=== PATIENT | male | born 1950 | race Caucasian/White ===

== ENCOUNTER 2017-12-23 10:57 | Inpatient (IN) ==
[2017-12-23] MEDS ORDERED: ASPIRIN 325 MG TABLET PO STA (11:30)
[2017-12-23 11:57] LABS: Basophils # 0.4 10*3/uL (0.0-0.2); Basophils % 2.7 % (0.0-0.8); Eosinophils # 0.1 10*3/uL (0.0-0.87); Eosinophils % 0.5 % (0.00-10.9); Hematocrit 32.9 VOL% (42.0-52.0); Hemoglobin 9.8 GM/DL (14.0-18.0); Immature Granulocytes % 8.4 %; Immature Granulocytes Absolute 1.29 #; Lymphocytes # 1.2 10*3/uL (1.4-4.0); Lymphocytes % 7.6 % (21.2-54.2); Mean Corpuscular HGB Conc 29.8 GM/DL (32-36); Mean Corpuscular Hemoglobin 24 PG (27-34); Mean Corpuscular Volume 81.8 FL (87-102); Mean Platelet Volume 11.5 FL (9.6-12.0); Monocytes # 0.5 10*3/uL (0.11-0.8); Monocytes % 3.2 % (1.7-12.7); NRBC # 0.03 10*3/uL; Neutrophils % 77.6 % (38.7-73.9); Platelet Count 514 T/CUMM (130-400); Red Blood Count 4.02 MC/CUMM (3.8-5.5); White Blood Count 15.4 T/CUMM (4-12)
[2017-12-23] MEDS ORDERED: SODIUM CHLORIDE 0.9% 2,300 ML IV ONE (12:27)
[2017-12-23 12:28] LABS: Albumin 3.7 G/DL (3.4-5.0); Bilirubin,Total 0.5 MG/DL (0.2-1.0); Calcium 9.2 MG/DL (8.5-10.1); Osmolality,Calculated 284.8 MOS/KG (273-304); Potassium 4.3 MMOL/L (3.5-5.1); Total Protein 7.6 G/DL (6.4-8.3)
[2017-12-23 12:31] LABS: Band Neutrophils 6 % (0-10); Eosinophils 4 % (0-10); Hypochromasia 1+; Lymphocytes 9 % (20-55); Microcytosis 1+; Myelocytes 1 %; Segmented Neutrophils 79 % (50-85); Total Cells Counted 100
[2017-12-23 12:32] LABS: Anisocytosis 1+; Ovalocytes Few; Polychromasia Slight
[2017-12-23 12:33] LABS: Platelet Estimate Increased
[2017-12-23 12:43] LABS: Partial Thromboplastin Time 33.8 SECS (0-40)
[2017-12-23] MEDS ORDERED: PROMETHAZINE 25 MG/1 ML VIAL IM PRN (13:39)
[2017-12-23] MEDS ORDERED: ACETAMINOPHEN 325 MG TABLET PO PRN (13:39)
[2017-12-23] MEDS ORDERED: ONDANSETRON 4 MG/2 ML VIAL IV PRN (13:39)
[2017-12-23] MEDS ORDERED: ALBUTEROL 2.5 MG/3 ML NEB RESP TX PRN (13:46)
[2017-12-23] MEDS ORDERED: cefTRIAXone 1,000 MG in SYRINGE 1 EACH IV STA (13:55)
[2017-12-23 14:40] LABS: Apearance,Urine CLOUDY (Clear); Bacteria,Urine Moderate /HPF (Few); Bilirubin,Urine Negative (Negative); Blood, Urine Large mg/dL (Negative); Glucose,Urine (UA) Negative (Negative); Ketones,Urine Negative (Negative); Mucus,Urine Many /LPF (Occasional); Nitrite,Urine Positive (Negative); Protein,Urine 100 MG/DL; RBC,Urine 215 /HPF (0-4); Urine Color Amber (Yellow); Urine Specific Gravity 1.013 (1.001-1.035); Urine Urobilinogen < 2.0 EU/DL (0.2-1.0); WBC,Urine 649 /HPF (0-6)
[2017-12-23] MEDS ORDERED: clonazePAM 0.5 MG TABLET PO PRN (15:46)
[2017-12-23] MEDS: SODIUM CHLORIDE 0.9% 1,000 ML IV SCH (16:39)
[2017-12-23] MEDS: LEVOFLOXACIN INJ 500 MG in PREMIX 1 EACH IV SCH (16:46)
[2017-12-23] MEDS: GABAPENTIN 300 MG CAPSULE PO SCH ×2 (16:46→20:58)
[2017-12-23 17:44] LABS: Basophils # 0.2 10*3/uL (0.0-0.2); Basophils % 1.6 % (0.0-0.8); Eosinophils % 0.3 % (0.00-10.9); Hematocrit 26.5 VOL% (42.0-52.0); Hemoglobin 7.9 GM/DL (14.0-18.0); Immature Granulocytes % 9.4 %; Immature Granulocytes Absolute 1.23 #; Lymphocytes # 0.9 10*3/uL (1.4-4.0); Lymphocytes % 6.9 % (21.2-54.2); Mean Corpuscular HGB Conc 29.8 GM/DL (32-36); Mean Corpuscular Hemoglobin 25 PG (27-34); Mean Corpuscular Volume 83.1 FL (87-102); Mean Platelet Volume 11.6 FL (9.6-12.0); Monocytes # 0.4 10*3/uL (0.11-0.8); Monocytes % 3.2 % (1.7-12.7); NRBC # 0.02 10*3/uL; Neutrophils # 10.2 10*3/uL (1.4-7.4); Neutrophils % 78.6 % (38.7-73.9); Platelet Count 396 T/CUMM (130-400); Red Blood Count 3.19 MC/CUMM (3.8-5.5); Red Cell Distribution Width 19.9 % (9.3-17.3)
[2017-12-23 18:16] LABS: % Iron Saturation 21.8 % (18-50); Ferritin 388.1 ng/ml (26-388)
[2017-12-23 18:24] LABS: Folate 4.4 NG/ML (5.4-24.0); Vitamin B12 631 PG/ML (211-911)
[2017-12-23 18:25] LABS: Vitamin B12 1061 PG/ML (211-911)
[2017-12-23 18:28] LABS: Eosinophils 1 % (0-10); Lymphocytes 11 % (20-55); Platelet Estimate Normal; Segmented Neutrophils 88 % (50-85); Total Cells Counted 100
[2017-12-23 18:54] LABS: Sedimentation Rate-Westergren 58 MM/HR (0-20)
[2017-12-24] MEDS: SODIUM CHLORIDE 0.9% 1,000 ML IV SCH ×4 (01:46→19:07)
[2017-12-24 05:32] LABS: Basophils # 0.2 10*3/uL (0.0-0.2); Basophils % 1.6 % (0.0-0.8); Eosinophils # 0.1 10*3/uL (0.0-0.87); Eosinophils % 0.7 % (0.00-10.9); Hemoglobin 7.6 GM/DL (14.0-18.0); Immature Granulocytes % 8.8 %; Immature Granulocytes Absolute 0.88 #; Lymphocytes # 0.8 10*3/uL (1.4-4.0); Lymphocytes % 8.1 % (21.2-54.2); Mean Corpuscular HGB Conc 29.2 GM/DL (32-36); Mean Corpuscular Hemoglobin 25 PG (27-34); Mean Corpuscular Volume 84.1 FL (87-102); Mean Platelet Volume 11.6 FL (9.6-12.0); Monocytes # 0.4 10*3/uL (0.11-0.8); Monocytes % 3.7 % (1.7-12.7); NRBC # 0.03 10*3/uL; Neutrophils # 7.7 10*3/uL (1.4-7.4); Neutrophils % 77.1 % (38.7-73.9); Platelet Count 355 T/CUMM (130-400); Red Blood Count 3.09 MC/CUMM (3.8-5.5); Red Cell Distribution Width 19.7 % (9.3-17.3)
[2017-12-24 05:56] LABS: Calcium 8.4 MG/DL (8.5-10.1); Osmolality,Calculated 283.5 MOS/KG (273-304)
[2017-12-24 05:59] LABS: Bilirubin,Total 0.5 MG/DL (0.2-1.0); Calcium 8.6 MG/DL (8.5-10.1); Osmolality,Calculated 284.5 MOS/KG (273-304); Potassium 4.2 MMOL/L (3.5-5.1); Total Protein 6.4 G/DL (6.4-8.3)
[2017-12-24 06:04] LABS: Band Neutrophils 7 % (0-10); Eosinophils 3 % (0-10); Hypochromasia 1+; Lymphocytes 8 % (20-55); Platelet Estimate Adequate; Segmented Neutrophils 80 % (50-85); Total Cells Counted 100
[2017-12-24 06:05] LABS: Microcytosis Slight
[2017-12-24 08:43] LABS: Hemoglobin A1 (Alkaline) 97.5 % (96.5-98.5); Hemoglobin A2 (Alkaline) 2.5 % (1.5-3.5)
[2017-12-24] MEDS ORDERED: NON-FORMULARY MEDICATION (Fluticasone/Umeclidin/Vilanter [Trelegy Ellipta 100-62.5-25] 1 P INH SCH (09:00)
[2017-12-24] MEDS: GABAPENTIN 300 MG CAPSULE PO SCH ×3 (09:01→20:40)
[2017-12-24] MEDS: SERTRALINE 100 MG TABLET PO SCH (09:01)
[2017-12-24] MEDS: TAMSULOSIN 0.4 MG CAPSULE PO SCH (09:01)
[2017-12-24] MEDS: PANTOPRAZOLE 40 MG TABLET PO SCH (09:01)
[2017-12-24] MEDS: ALLOPURINOL 100 MG TABLET PO SCH (09:02)
[2017-12-24] MEDS: CHOLECALCIFEROL 5,000 UNIT TABLET PO SCH (11:39)
[2017-12-24] MEDS: ERGOCALCIFEROL 50,000 UNIT CAPSULE PO SCH (11:39)
[2017-12-24] MEDS ORDERED: ALUM/MAG/SIMETH/LIDO VISC 1:1 30 ML BOTTLE PO ONE (13:51)
[2017-12-24] MEDS: LEVOFLOXACIN INJ 500 MG in PREMIX 1 EACH IV SCH (15:22)
[2017-12-24] MEDS: FERROUS SULFATE 325 MG TABLET PO SCH ×2 (15:22→20:40)
[2017-12-24] MEDS ORDERED: SODIUM CHLORIDE 0.9% 1,000 ML IV PRN ×2 (15:58→17:04)
[2017-12-24] MEDS: methylPREDNISolone SOD SUC 40 MG/1 ML VIAL IV SCH (17:19)
[2017-12-24] MEDS: ALBUTEROL/IPRATROPIUM 3 ML NEB RESP TX SCH (19:09)
[2017-12-24] MEDS: FOLIC ACID 1 MG TABLET PO SCH (20:40)
[2017-12-25] MEDS: ALBUTEROL/IPRATROPIUM 3 ML NEB RESP TX SCH ×4 (00:40→22:09)
[2017-12-25] MEDS: methylPREDNISolone SOD SUC 40 MG/1 ML VIAL IV SCH ×3 (03:18→16:12)
[2017-12-25 05:43] LABS: Basophils # 0.1 10*3/uL (0.0-0.2); Basophils % 1.4 % (0.0-0.8); Eosinophils % 0.2 % (0.00-10.9); Hematocrit 27.8 VOL% (42.0-52.0); Hemoglobin 8.2 GM/DL (14.0-18.0); Immature Granulocytes % 8.9 %; Immature Granulocytes Absolute 0.91 #; Lymphocytes # 0.6 10*3/uL (1.4-4.0); Lymphocytes % 5.9 % (21.2-54.2); Mean Corpuscular HGB Conc 29.5 GM/DL (32-36); Mean Corpuscular Hemoglobin 25 PG (27-34); Mean Platelet Volume 11.5 FL (9.6-12.0); Monocytes # 0.2 10*3/uL (0.11-0.8); Monocytes % 2.2 % (1.7-12.7); NRBC # 0.02 10*3/uL; Neutrophils # 8.3 10*3/uL (1.4-7.4); Neutrophils % 81.4 % (38.7-73.9); Platelet Count 317 T/CUMM (130-400); Red Blood Count 3.27 MC/CUMM (3.8-5.5); Red Cell Distribution Width 18.7 % (9.3-17.3); White Blood Count 10.2 T/CUMM (4-12)
[2017-12-25 05:59] LABS: Calcium 8.4 MG/DL (8.5-10.1); Calcium 8.5 MG/DL (8.5-10.1); Osmolality,Calculated 284.3 MOS/KG (273-304); Osmolality,Calculated 286.1 MOS/KG (273-304); Potassium 3.6 MMOL/L (3.5-5.1); Potassium 3.7 MMOL/L (3.5-5.1)
[2017-12-25 06:15] LABS: Band Neutrophils 4 % (0-10); Eosinophils 1 % (0-10); Hypochromasia 1+; Lymphocytes 11 % (20-55); Metamyelocytes 1 %; Microcytosis 1+; Myelocytes 3 %; Ovalocytes Slight; Polychromasia Slight; Segmented Neutrophils 76 % (50-85); Total Cells Counted 100
[2017-12-25 06:16] LABS: Anisocytosis 1+; Platelet Estimate Normal
[2017-12-25] MEDS: SODIUM CHLORIDE 0.9% 1,000 ML IV SCH ×2 (07:15→16:15)
[2017-12-25] MEDS ORDERED: MAGNESIUM SULF RIDER 2 GM in PREMIX 1 EACH IV ONE (07:34)
[2017-12-25 08:50] LABS: Apearance,Urine CLOUDY (Clear); Bilirubin,Urine Negative (Negative); Blood, Urine Moderate mg/dL (Negative); Glucose,Urine (UA) Negative (Negative); Ketones,Urine Negative (Negative); Mucus,Urine Occasional /LPF (Occasional); Nitrite,Urine Negative (Negative); Protein,Urine Negative; RBC,Urine 15 /HPF (0-4); Uric Acid Crystals,Urine Occasional /HPF (<1); Urine Color Yellow (Yellow); Urine Specific Gravity 1.011 (1.001-1.035); Urine Urobilinogen < 2.0 EU/DL (0.2-1.0); WBC,Urine 37 /HPF (0-6)
[2017-12-25] MEDS: FOLIC ACID 1 MG TABLET PO SCH ×2 (09:00→22:35)
[2017-12-25] MEDS: FERROUS SULFATE 325 MG TABLET PO SCH ×3 (09:00→22:35)
[2017-12-25] MEDS: GABAPENTIN 300 MG CAPSULE PO SCH ×3 (09:00→22:35)
[2017-12-25] MEDS: SERTRALINE 100 MG TABLET PO SCH (11:26)
[2017-12-25] MEDS: PANTOPRAZOLE 40 MG TABLET PO SCH (11:26)
[2017-12-25] MEDS: CHOLECALCIFEROL 5,000 UNIT TABLET PO SCH (11:26)
[2017-12-25] MEDS: ALLOPURINOL 100 MG TABLET PO SCH (11:26)
[2017-12-25] MEDS: TAMSULOSIN 0.4 MG CAPSULE PO SCH (11:27)
[2017-12-25] MEDS ORDERED: BISACODYL 5 MG TABLET PO ONE (12:00)
[2017-12-25 12:35] LABS: Carcinoembryonic Antigen < 0.5 NG/ML (0.0-5.0)
[2017-12-25] MEDS: LEVOFLOXACIN INJ 500 MG in PREMIX 1 EACH IV SCH (16:13)
[2017-12-25] MEDS ORDERED: PANTOPRAZOLE 40 MG TABLET PO ONE (17:45)
[2017-12-25] MEDS ORDERED: POLYETHYLENE GLYCOL POWDER 255 GM BOTTLE PO ONE (18:00)
[2017-12-26] MEDS: ALBUTEROL/IPRATROPIUM 3 ML NEB RESP TX SCH ×4 (00:01→20:09)
[2017-12-26] MEDS: SODIUM CHLORIDE 0.9% 1,000 ML IV SCH ×2 (00:53→13:14)
[2017-12-26] MEDS: methylPREDNISolone SOD SUC 40 MG/1 ML VIAL IV SCH ×3 (01:36→17:20)
[2017-12-26 06:23] LABS: Basophils # 0.1 10*3/uL (0.0-0.2); Basophils % 0.9 % (0.0-0.8); Eosinophils % 0.2 % (0.00-10.9); Hematocrit 28.9 VOL% (42.0-52.0); Hemoglobin 8.8 GM/DL (14.0-18.0); Immature Granulocytes % 8.8 %; Immature Granulocytes Absolute 1.02 #; Lymphocytes # 0.4 10*3/uL (1.4-4.0); Mean Corpuscular HGB Conc 30.4 GM/DL (32-36); Mean Corpuscular Hemoglobin 25 PG (27-34); Mean Corpuscular Volume 81.9 FL (87-102); Mean Platelet Volume 10.8 FL (9.6-12.0); Monocytes # 0.3 10*3/uL (0.11-0.8); Monocytes % 2.3 % (1.7-12.7); NRBC # 0.02 10*3/uL; Neutrophils # 9.9 10*3/uL (1.4-7.4); Neutrophils % 84.8 % (38.7-73.9); Platelet Count 324 T/CUMM (130-400); Red Blood Count 3.53 MC/CUMM (3.8-5.5); Red Cell Distribution Width 18.8 % (9.3-17.3); White Blood Count 11.6 T/CUMM (4-12)
[2017-12-26 06:45] LABS: Bilirubin,Total 0.5 MG/DL (0.2-1.0); Calcium 8.9 MG/DL (8.5-10.1); Potassium 3.3 MMOL/L (3.5-5.1); Total Protein 6.3 G/DL (6.4-8.3)
[2017-12-26 06:46] LABS: Band Neutrophils 7 % (0-10); Lymphocytes 5 % (20-55); Nucleated Red Blood Cells 1 (0-5); Platelet Estimate Normal; Segmented Neutrophils 84 % (50-85); Total Cells Counted 100
[2017-12-26] MEDS ORDERED: LIDOCAINE 2% 5 ML VIAL ONE (09:00)
[2017-12-26] MEDS ORDERED: PROPOFOL 200 MG/20 ML VIAL IV ONE (09:00)
[2017-12-26] MEDS ORDERED: POTASSIUM CHLORIDE 20 MEQ/15 ML UDCUP PO ONE (09:26)
[2017-12-26] MEDS ORDERED: MAGNESIUM SULF RIDER 2 GM in PREMIX 1 EACH IV ONE (09:27)
[2017-12-26] MEDS: FERROUS SULFATE 325 MG TABLET PO SCH ×3 (12:13→21:39)
[2017-12-26] MEDS: GABAPENTIN 300 MG CAPSULE PO SCH ×3 (12:13→21:39)
[2017-12-26] MEDS: PANTOPRAZOLE 40 MG TABLET PO SCH (13:02)
[2017-12-26] MEDS: ALLOPURINOL 100 MG TABLET PO SCH (13:03)
[2017-12-26] MEDS: TAMSULOSIN 0.4 MG CAPSULE PO SCH (13:03)
[2017-12-26] MEDS: CHOLECALCIFEROL 5,000 UNIT TABLET PO SCH (13:03)
[2017-12-26] MEDS: FOLIC ACID 1 MG TABLET PO SCH ×2 (13:04→21:39)
[2017-12-26] MEDS: SERTRALINE 100 MG TABLET PO SCH (13:04)
[2017-12-26] MEDS: LEVOFLOXACIN INJ 500 MG in PREMIX 1 EACH IV SCH (15:20)
[2017-12-26] MEDS ORDERED: PANTOPRAZOLE 40 MG TABLET PO ONE (17:30)
[2017-12-26] MEDS ORDERED: ALUM/MAG/SIMETH/LIDO VISC 1:1 30 ML BOTTLE PO ONE (19:33)
[2017-12-26] MEDS ORDERED: ALUMINUM/MAGNES/SIMETH MAX STR 30 ML UDCUP PO ONE (23:50)
[2017-12-27] MEDS: methylPREDNISolone SOD SUC 40 MG/1 ML VIAL IV SCH ×3 (00:23→17:25)
[2017-12-27] MEDS: SODIUM CHLORIDE 0.9% 1,000 ML IV SCH ×3 (00:24→08:11)
[2017-12-27] MEDS: ALBUTEROL/IPRATROPIUM 3 ML NEB RESP TX SCH ×4 (00:43→19:13)
[2017-12-27] MEDS: SIMETHICONE CHEW 125 MG TABLET PO SCH ×4 (02:40→14:30)
[2017-12-27 07:50] LABS: Albumin 2.8 G/DL (3.4-5.0); Bilirubin,Total 0.6 MG/DL (0.2-1.0); Calcium 8.5 MG/DL (8.5-10.1); Osmolality,Calculated 288.8 MOS/KG (273-304); Potassium 3.7 MMOL/L (3.5-5.1); Total Protein 5.8 G/DL (6.4-8.3)
[2017-12-27 07:51] LABS: Basophils # 0.1 10*3/uL (0.0-0.2); Basophils % 0.9 % (0.0-0.8); Eosinophils % 0.1 % (0.00-10.9); Hematocrit 28.6 VOL% (42.0-52.0); Hemoglobin 8.5 GM/DL (14.0-18.0); Immature Granulocytes % 8.9 %; Immature Granulocytes Absolute 1.08 #; Lymphocytes # 0.4 10*3/uL (1.4-4.0); Lymphocytes % 3.5 % (21.2-54.2); Mean Corpuscular HGB Conc 29.7 GM/DL (32-36); Mean Corpuscular Hemoglobin 25 PG (27-34); Mean Corpuscular Volume 84.1 FL (87-102); Mean Platelet Volume 11.2 FL (9.6-12.0); Monocytes # 0.3 10*3/uL (0.11-0.8); Monocytes % 2.4 % (1.7-12.7); NRBC # 0.02 10*3/uL; Neutrophils # 10.2 10*3/uL (1.4-7.4); Neutrophils % 84.2 % (38.7-73.9); Platelet Count 323 T/CUMM (130-400); Red Cell Distribution Width 18.9 % (9.3-17.3); White Blood Count 12.1 T/CUMM (4-12)
[2017-12-27] MEDS: PANTOPRAZOLE 40 MG TABLET PO SCH (08:24)
[2017-12-27] MEDS: GABAPENTIN 300 MG CAPSULE PO SCH ×3 (08:24→20:06)
[2017-12-27] MEDS: CHOLECALCIFEROL 5,000 UNIT TABLET PO SCH (08:24)
[2017-12-27] MEDS: SERTRALINE 100 MG TABLET PO SCH (08:25)
[2017-12-27] MEDS: ALLOPURINOL 100 MG TABLET PO SCH (08:25)
[2017-12-27] MEDS: FOLIC ACID 1 MG TABLET PO SCH ×2 (08:31→20:07)
[2017-12-27] MEDS: TAMSULOSIN 0.4 MG CAPSULE PO SCH (08:31)
[2017-12-27] MEDS: FERROUS SULFATE 325 MG TABLET PO SCH ×3 (08:31→20:07)
[2017-12-27 08:54] LABS: HIV Antigen/Antibody Result Nonreactive (Nonreactive)
[2017-12-27] MEDS: LISINOPRIL/HCTZ 20-12.5 MG TABLET PO SCH (09:04)
[2017-12-27 09:27] LABS: Anisocytosis 1+; Band Neutrophils 7 % (0-10)
[2017-12-27 09:28] LABS: Hypochromasia 1+; Microcytosis 1+
[2017-12-27 09:29] LABS: Ovalocytes Few
[2017-12-27 09:30] LABS: Lymphocytes 4 % (20-55); Metamyelocytes 1 %
[2017-12-27 09:33] LABS: Tear Drop Cells Slight
[2017-12-27 09:36] LABS: Platelet Estimate Normal
[2017-12-27 09:37] LABS: Segmented Neutrophils 86 % (50-85); Total Cells Counted 100
[2017-12-27 09:42] LABS: Basophilic Stippling Slight
[2017-12-27] MEDS: LEVOFLOXACIN INJ 500 MG in PREMIX 1 EACH IV SCH (15:44)
[2017-12-28] MEDS: ALBUTEROL/IPRATROPIUM 3 ML NEB RESP TX SCH ×4 (00:22→19:34)
[2017-12-28] MEDS: methylPREDNISolone SOD SUC 40 MG/1 ML VIAL IV SCH ×3 (01:50→16:29)
[2017-12-28 03:15] LABS: Basophils # 0.1 10*3/uL (0.0-0.2); Basophils % 0.6 % (0.0-0.8); Eosinophils % 0.1 % (0.00-10.9); Hematocrit 27.2 VOL% (42.0-52.0); Hemoglobin 8.2 GM/DL (14.0-18.0); Immature Granulocytes % 7.7 %; Immature Granulocytes Absolute 0.79 #; Lymphocytes # 0.3 10*3/uL (1.4-4.0); Mean Corpuscular HGB Conc 30.1 GM/DL (32-36); Mean Corpuscular Hemoglobin 25 PG (27-34); Mean Corpuscular Volume 84.2 FL (87-102); Mean Platelet Volume 11.3 FL (9.6-12.0); Monocytes # 0.3 10*3/uL (0.11-0.8); Monocytes % 2.9 % (1.7-12.7); NRBC # 0.04 10*3/uL; Neutrophils # 8.8 10*3/uL (1.4-7.4); Neutrophils % 85.7 % (38.7-73.9); Platelet Count 319 T/CUMM (130-400); Red Blood Count 3.23 MC/CUMM (3.8-5.5); Red Cell Distribution Width 18.9 % (9.3-17.3); White Blood Count 10.3 T/CUMM (4-12)
[2017-12-28 03:41] LABS: Calcium 8.6 MG/DL (8.5-10.1); Potassium 3.5 MMOL/L (3.5-5.1)
[2017-12-28 03:54] LABS: Lymphocytes 8 % (20-55); Nucleated Red Blood Cells 1 (0-5); Platelet Estimate Normal; Polychromasia Slight; Segmented Neutrophils 89 % (50-85); Total Cells Counted 100
[2017-12-28] MEDS: LISINOPRIL/HCTZ 20-12.5 MG TABLET PO SCH (08:56)
[2017-12-28] MEDS: CHOLECALCIFEROL 5,000 UNIT TABLET PO SCH (08:56)
[2017-12-28] MEDS: SERTRALINE 100 MG TABLET PO SCH (08:56)
[2017-12-28] MEDS: PANTOPRAZOLE 40 MG TABLET PO SCH (08:56)
[2017-12-28] MEDS: ALLOPURINOL 100 MG TABLET PO SCH (08:56)
[2017-12-28] MEDS: GABAPENTIN 300 MG CAPSULE PO SCH ×3 (08:57→20:55)
[2017-12-28] MEDS: TAMSULOSIN 0.4 MG CAPSULE PO SCH (08:57)
[2017-12-28] MEDS: FERROUS SULFATE 325 MG TABLET PO SCH ×3 (08:57→20:55)
[2017-12-28] MEDS: FOLIC ACID 1 MG TABLET PO SCH ×2 (08:57→20:55)
[2017-12-28] MEDS ORDERED: CARVEDILOL 3.125 MG TABLET PO SCH (10:00)
[2017-12-28] MEDS: LEVOFLOXACIN INJ 500 MG in PREMIX 1 EACH IV SCH (16:29)
[2017-12-28] MEDS: CARVEDILOL 6.25 MG TABLET PO SCH (20:55)
[2017-12-29] MEDS: methylPREDNISolone SOD SUC 40 MG/1 ML VIAL IV SCH ×3 (01:06→16:45)
[2017-12-29] MEDS: ALBUTEROL/IPRATROPIUM 3 ML NEB RESP TX SCH ×4 (01:28→19:10)
[2017-12-29] MEDS ORDERED: ALUMINUM/MAGNES/SIMETH MAX STR 30 ML UDCUP PO PRN (01:37)
[2017-12-29] MEDS ORDERED: ALUM/MAG/SIMETH/LIDO VISC 1:1 30 ML BOTTLE PO ONE (01:37)
[2017-12-29] MEDS: SIMETHICONE CHEW 125 MG TABLET PO PRN ×2 (03:39→13:35)
[2017-12-29 04:43] LABS: Basophils # 0.1 10*3/uL (0.0-0.2); Basophils % 0.6 % (0.0-0.8); Eosinophils % 0.1 % (0.00-10.9); Hematocrit 31.8 VOL% (42.0-52.0); Hemoglobin 9.7 GM/DL (14.0-18.0); Immature Granulocytes % 9.2 %; Immature Granulocytes Absolute 1.28 #; Lymphocytes # 0.4 10*3/uL (1.4-4.0); Lymphocytes % 2.7 % (21.2-54.2); Mean Corpuscular HGB Conc 30.5 GM/DL (32-36); Mean Corpuscular Hemoglobin 25 PG (27-34); Mean Corpuscular Volume 82.6 FL (87-102); Mean Platelet Volume 11.3 FL (9.6-12.0); Monocytes # 0.3 10*3/uL (0.11-0.8); Monocytes % 1.8 % (1.7-12.7); Neutrophils # 11.9 10*3/uL (1.4-7.4); Neutrophils % 85.6 % (38.7-73.9); Platelet Count 359 T/CUMM (130-400); Red Blood Count 3.85 MC/CUMM (3.8-5.5); Red Cell Distribution Width 19.2 % (9.3-17.3); White Blood Count 13.9 T/CUMM (4-12)
[2017-12-29 05:12] LABS: Calcium 8.4 MG/DL (8.5-10.1)
[2017-12-29 05:13] LABS: Osmolality,Calculated 283.1 MOS/KG (273-304)
[2017-12-29 05:43] LABS: Band Neutrophils 25 % (0-10); Lymphocytes 2 % (20-55); Metamyelocytes 2 %; Platelet Estimate Normal; Segmented Neutrophils 69 % (50-85); Total Cells Counted 100
[2017-12-29] MEDS: SERTRALINE 100 MG TABLET PO SCH (08:57)
[2017-12-29] MEDS: PANTOPRAZOLE 40 MG TABLET PO SCH (08:57)
[2017-12-29] MEDS: GABAPENTIN 300 MG CAPSULE PO SCH ×3 (08:57→20:22)
[2017-12-29] MEDS: CHOLECALCIFEROL 5,000 UNIT TABLET PO SCH (08:57)
[2017-12-29] MEDS: FERROUS SULFATE 325 MG TABLET PO SCH ×3 (08:57→20:23)
[2017-12-29] MEDS: TAMSULOSIN 0.4 MG CAPSULE PO SCH (08:57)
[2017-12-29] MEDS: ALLOPURINOL 100 MG TABLET PO SCH (08:57)
[2017-12-29] MEDS: CARVEDILOL 6.25 MG TABLET PO SCH ×2 (08:57→20:23)
[2017-12-29] MEDS: FOLIC ACID 1 MG TABLET PO SCH ×2 (08:57→20:23)
[2017-12-29] MEDS: LISINOPRIL/HCTZ 20-12.5 MG TABLET PO SCH (08:57)
[2017-12-29] MEDS: LEVOFLOXACIN INJ 500 MG in PREMIX 1 EACH IV SCH (15:44)
[2017-12-30] MEDS: ALBUTEROL/IPRATROPIUM 3 ML NEB RESP TX SCH ×4 (00:20→19:20)
[2017-12-30] MEDS: methylPREDNISolone SOD SUC 40 MG/1 ML VIAL IV SCH ×3 (01:45→17:03)
[2017-12-30 05:07] LABS: Basophils # 0.1 10*3/uL (0.0-0.2); Basophils % 0.6 % (0.0-0.8); Eosinophils % 0.1 % (0.00-10.9); Hematocrit 34.1 VOL% (42.0-52.0); Hemoglobin 10.3 GM/DL (14.0-18.0); Immature Granulocytes % 8.2 %; Immature Granulocytes Absolute 1.45 #; Lymphocytes # 0.5 10*3/uL (1.4-4.0); Mean Corpuscular HGB Conc 30.2 GM/DL (32-36); Mean Corpuscular Hemoglobin 25 PG (27-34); Mean Corpuscular Volume 82.6 FL (87-102); Mean Platelet Volume 11.8 FL (9.6-12.0); Monocytes # 0.4 10*3/uL (0.11-0.8); Monocytes % 2.4 % (1.7-12.7); NRBC # 0.06 10*3/uL; Neutrophils # 15.1 10*3/uL (1.4-7.4); Neutrophils % 85.7 % (38.7-73.9); Platelet Count 414 T/CUMM (130-400); Red Blood Count 4.13 MC/CUMM (3.8-5.5); Red Cell Distribution Width 19.3 % (9.3-17.3); White Blood Count 17.6 T/CUMM (4-12)
[2017-12-30 05:32] LABS: Bilirubin,Total 0.7 MG/DL (0.2-1.0); Calcium 8.5 MG/DL (8.5-10.1); Osmolality,Calculated 285.3 MOS/KG (273-304); Potassium 4.3 MMOL/L (3.5-5.1); Total Protein 5.9 G/DL (6.4-8.3)
[2017-12-30 05:34] LABS: Band Neutrophils 6 % (0-10); Hypochromasia 1+; Lymphocytes 2 % (20-55); Nucleated Red Blood Cells 1 (0-5); Ovalocytes Slight; Platelet Estimate Increased; Segmented Neutrophils 90 % (50-85); Total Cells Counted 100
[2017-12-30] MEDS ORDERED: HEPARIN 5,000 UNIT/1 ML VIAL ONE (07:31)
[2017-12-30] MEDS: SERTRALINE 100 MG TABLET PO SCH (09:49)
[2017-12-30] MEDS: GABAPENTIN 300 MG CAPSULE PO SCH ×3 (09:49→20:45)
[2017-12-30] MEDS: PANTOPRAZOLE 40 MG TABLET PO SCH (09:50)
[2017-12-30] MEDS: CARVEDILOL 6.25 MG TABLET PO SCH ×2 (09:50→20:46)
[2017-12-30] MEDS: TAMSULOSIN 0.4 MG CAPSULE PO SCH (09:50)
[2017-12-30] MEDS: CHOLECALCIFEROL 5,000 UNIT TABLET PO SCH (09:50)
[2017-12-30] MEDS: FOLIC ACID 1 MG TABLET PO SCH ×2 (09:50→20:46)
[2017-12-30] MEDS: LISINOPRIL/HCTZ 20-12.5 MG TABLET PO SCH (09:50)
[2017-12-30] MEDS: ALLOPURINOL 100 MG TABLET PO SCH (09:50)
[2017-12-30] MEDS: FERROUS SULFATE 325 MG TABLET PO SCH ×3 (09:51→20:49)
[2017-12-30] MEDS: LEVOFLOXACIN INJ 500 MG in PREMIX 1 EACH IV SCH (14:13)
[2017-12-31] MEDS: ALBUTEROL/IPRATROPIUM 3 ML NEB RESP TX SCH ×4 (00:31→20:18)
[2017-12-31] MEDS: methylPREDNISolone SOD SUC 40 MG/1 ML VIAL IV SCH ×3 (02:01→17:19)
[2017-12-31] MEDS: ALLOPURINOL 100 MG TABLET PO SCH (09:41)
[2017-12-31] MEDS: GABAPENTIN 300 MG CAPSULE PO SCH ×3 (09:41→20:51)
[2017-12-31] MEDS: FERROUS SULFATE 325 MG TABLET PO SCH ×3 (09:41→20:51)
[2017-12-31] MEDS: CHOLECALCIFEROL 5,000 UNIT TABLET PO SCH (09:41)
[2017-12-31] MEDS: CARVEDILOL 6.25 MG TABLET PO SCH ×2 (09:41→20:51)
[2017-12-31] MEDS: LISINOPRIL/HCTZ 20-12.5 MG TABLET PO SCH (09:41)
[2017-12-31] MEDS: FOLIC ACID 1 MG TABLET PO SCH ×2 (09:41→20:51)
[2017-12-31] MEDS: TAMSULOSIN 0.4 MG CAPSULE PO SCH (09:42)
[2017-12-31] MEDS: PANTOPRAZOLE 40 MG TABLET PO SCH (09:42)
[2017-12-31] MEDS: SERTRALINE 100 MG TABLET PO SCH (09:42)
[2017-12-31] MEDS: ERGOCALCIFEROL 50,000 UNIT CAPSULE PO SCH (12:09)
[2017-12-31] MEDS: LEVOFLOXACIN INJ 500 MG in PREMIX 1 EACH IV SCH (14:52)
[2018-01-01] MEDS: methylPREDNISolone SOD SUC 40 MG/1 ML VIAL IV SCH ×2 (00:25→10:05)
[2018-01-01] MEDS: ALBUTEROL/IPRATROPIUM 3 ML NEB RESP TX SCH ×4 (00:28→19:18)
[2018-01-01 05:10] LABS: Basophils # 0.1 10*3/uL (0.0-0.2); Basophils % 0.5 % (0.0-0.8); Eosinophils % 0.2 % (0.00-10.9); Hematocrit 34.2 VOL% (42.0-52.0); Hemoglobin 10.2 GM/DL (14.0-18.0); Immature Granulocytes % 10.1 %; Immature Granulocytes Absolute 1.76 #; Lymphocytes # 0.6 10*3/uL (1.4-4.0); Lymphocytes % 3.3 % (21.2-54.2); Mean Corpuscular HGB Conc 29.8 GM/DL (32-36); Mean Corpuscular Hemoglobin 25 PG (27-34); Mean Corpuscular Volume 84.2 FL (87-102); Mean Platelet Volume 11.3 FL (9.6-12.0); Monocytes # 0.4 10*3/uL (0.11-0.8); Monocytes % 2.2 % (1.7-12.7); NRBC # 0.04 10*3/uL; Neutrophils # 14.6 10*3/uL (1.4-7.4); Neutrophils % 83.7 % (38.7-73.9); Platelet Count 384 T/CUMM (130-400); Red Blood Count 4.06 MC/CUMM (3.8-5.5); Red Cell Distribution Width 19.4 % (9.3-17.3); White Blood Count 17.5 T/CUMM (4-12)
[2018-01-01 05:39] LABS: Calcium 8.4 MG/DL (8.5-10.1); Osmolality,Calculated 288.4 MOS/KG (273-304); Potassium 4.7 MMOL/L (3.5-5.1)
[2018-01-01 05:41] LABS: Calcium 8.6 MG/DL (8.5-10.1); Osmolality,Calculated 285.5 MOS/KG (273-304); Potassium 4.8 MMOL/L (3.5-5.1)
[2018-01-01 06:10] LABS: Band Neutrophils 3 % (0-10); Lymphocytes 5 % (20-55); Metamyelocytes 1 %; Platelet Estimate Normal; Segmented Neutrophils 86 % (50-85); Total Cells Counted 100
[2018-01-01 06:11] LABS: Basophilic Stippling Few; Polychromasia Few
[2018-01-01] MEDS ORDERED: LIDOCAINE 2% TOP JELLY 20 ML VIAL INTRAURETH ONE (08:23)
[2018-01-01] MEDS: PANTOPRAZOLE 40 MG TABLET PO SCH (10:04)
[2018-01-01] MEDS: TAMSULOSIN 0.4 MG CAPSULE PO SCH (10:05)
[2018-01-01] MEDS: FERROUS SULFATE 325 MG TABLET PO SCH ×3 (10:05→20:42)
[2018-01-01] MEDS: ALLOPURINOL 100 MG TABLET PO SCH (10:05)
[2018-01-01] MEDS: CHOLECALCIFEROL 5,000 UNIT TABLET PO SCH (10:05)
[2018-01-01] MEDS: FOLIC ACID 1 MG TABLET PO SCH ×2 (10:05→20:43)
[2018-01-01] MEDS: SERTRALINE 100 MG TABLET PO SCH (10:05)
[2018-01-01] MEDS: GABAPENTIN 300 MG CAPSULE PO SCH ×3 (10:05→20:42)
[2018-01-01] MEDS: CARVEDILOL 6.25 MG TABLET PO SCH ×2 (10:05→20:42)
[2018-01-01] MEDS: LISINOPRIL/HCTZ 20-12.5 MG TABLET PO SCH (10:05)
[2018-01-01] MEDS ORDERED: methylPREDNISolone SOD SUC 40 MG/1 ML VIAL IM SCH (13:30)
[2018-01-01] MEDS: LEVOFLOXACIN INJ 500 MG in PREMIX 1 EACH IV SCH (16:33)
[2018-01-01] MEDS ORDERED: methylPREDNISolone SOD SUC 40 MG/1 ML VIAL IV SCH (20:00)
[2018-01-02] MEDS: ALBUTEROL/IPRATROPIUM 3 ML NEB RESP TX SCH ×3 (00:18→13:27)
[2018-01-02] MEDS: LISINOPRIL/HCTZ 20-12.5 MG TABLET PO SCH (09:00)
[2018-01-02] MEDS: TAMSULOSIN 0.4 MG CAPSULE PO SCH (09:00)
[2018-01-02] MEDS: FOLIC ACID 1 MG TABLET PO SCH (09:00)
[2018-01-02] MEDS: SERTRALINE 100 MG TABLET PO SCH (09:00)
[2018-01-02] MEDS ORDERED: predniSONE 20 MG TABLET PO SCH (09:00)
[2018-01-02] MEDS: GABAPENTIN 300 MG CAPSULE PO SCH (09:00)
[2018-01-02] MEDS: CHOLECALCIFEROL 5,000 UNIT TABLET PO SCH (09:00)
[2018-01-02] MEDS: ALLOPURINOL 100 MG TABLET PO SCH (09:00)
[2018-01-02] MEDS: FERROUS SULFATE 325 MG TABLET PO SCH (09:00)
[2018-01-02] MEDS: CARVEDILOL 6.25 MG TABLET PO SCH (09:00)
[2018-01-02] MEDS: PANTOPRAZOLE 40 MG TABLET PO SCH (09:01)
[2018-01-02 14:18] VITALS: BP 142/74
== END 2018-01-02 15:01 | disposition swing bed (61) | DRG 872 ==
LOC: N.ED 10:57 → N.EDINP 13:40 → SUATTDRO 13:40 → N.3E 14:32
PROVIDERS: ADMIT Internal Medicine; ATTEND Internal Medicine

== ENCOUNTER 2018-07-15 06:20 | Inpatient (IN) ==
[2018-07-15] MEDS ORDERED: LEVOFLOXACIN 500 MG TABLET PO ONE (08:13)
[2018-07-15] MEDS ORDERED: MIDAZOLAM 2 MG/2 ML VIAL IV ONE (08:13)
[2018-07-15] MEDS ORDERED: MEPERIDINE 50 MG/1 ML VIAL IV ONE (08:13)
[2018-07-15] MEDS ORDERED: ONDANSETRON 4 MG/2 ML VIAL IV ONE (08:13)
[2018-07-15] MEDS ORDERED: DIAZEPAM 5 MG TABLET PO ONE ×2 (08:13)
[2018-07-15] MEDS ORDERED: NALOXONE 0.4 MG/ML VIAL IV PRN (08:27)
[2018-07-15 08:39] LABS: Lymphocytes % 9.8 % (21.2-54.2); Neutrophils # 6.5 10*3/uL (1.4-7.4)
[2018-07-15 08:43] LABS: Basophils # 0.2 10*3/uL (0.0-0.2); Basophils % 1.8 % (0.0-0.8); Eosinophils # 0.4 10*3/uL (0.0-0.87); Eosinophils % 3.7 % (0.00-10.9); Hematocrit 23.8 VOL% (42.0-52.0); Immature Granulocytes % 21.9 %; Lymphocytes # 1.1 10*3/uL (1.4-4.0); Mean Corpuscular Hemoglobin 27 PG (27-34); Mean Corpuscular Volume 93.3 FL (87-102); Mean Platelet Volume 11.6 FL (9.6-12.0); Monocytes # 0.7 10*3/uL (0.11-0.8); NRBC # 0.47 10*3/uL; Neutrophils % 56.8 % (38.7-73.9); Platelet Count 154 T/CUMM (130-400); Red Blood Count 2.55 MC/CUMM (3.8-5.5); White Blood Count 11.4 T/CUMM (4-12)
[2018-07-15 08:44] LABS: Hemoglobin 6.9 GM/DL (14.0-18.0)
[2018-07-15 08:54] LABS: PT Patient Result 11.1 SECS; Partial Thromboplastin Time 29.9 SECS (0-40)
[2018-07-15 09:04] LABS: Calcium 8.3 MG/DL (8.5-10.1); Osmolality,Calculated 275.8 MOS/KG (273-304); Potassium 5.1 MMOL/L (3.5-5.1)
[2018-07-15 09:06] LABS: Band Neutrophils 34 % (0-10); Eosinophils 6 % (0-10); Lymphocytes 16 % (20-55); Metamyelocytes 1 %; Myelocytes 1 %; Nucleated Red Blood Cells 4 (0-5); Segmented Neutrophils 39 % (50-85); Total Cells Counted 100
[2018-07-15 09:09] LABS: Anisocytosis 2+; Basophilic Stippling 1+; Platelet Estimate Normal; Poikilocytosis 1+
[2018-07-15] MEDS ORDERED: fentaNYL 100 MCG/2 ML VIAL ONE (10:34)
[2018-07-15] MEDS ORDERED: ONDANSETRON 4 MG/2 ML VIAL ONE (10:35)
[2018-07-15] MEDS ORDERED: MIDAZOLAM 2 MG/2 ML VIAL ONE (10:35)
[2018-07-15] MEDS ORDERED: HEPARIN/NACL 0.9% 2 UNITS/ML 2,000 ML IV ONE (10:35)
[2018-07-15] MEDS ORDERED: fentaNYL 100 MCG/2 ML VIAL IV ONE (11:17)
[2018-07-15] MEDS ORDERED: ONDANSETRON 4 MG/2 ML VIAL IV PRN (12:35)
[2018-07-15] MEDS ORDERED: HYDROmorphone 2 MG/1 ML VIAL IV PRN ×2 (13:14→13:23)
[2018-07-15] MEDS ORDERED: HYDROmorphone 2 MG/1 ML VIAL IV ONE (13:14)
[2018-07-15] MEDS ORDERED: ALBUTEROL 2.5 MG/3 ML NEB RESP TX PRN (13:21)
[2018-07-15] MEDS: KETOROLAC 15 MG/1 ML VIAL IV SCH ×2 (13:23→20:58)
[2018-07-15] MEDS: methylPREDNISolone SOD SUC 125 MG/2 ML VIAL IV SCH ×2 (13:23→20:57)
[2018-07-15] MEDS: SODIUM CHLORIDE 0.45% 1,000 ML IV SCH (13:23)
[2018-07-15] MEDS ORDERED: HydrOXYzine PAMOATE 50 MG CAPSULE PO SCH (13:30)
[2018-07-15] MEDS: HYDROmorphone PCA 30 MG/30 ML SYRINGE IV SCH (13:46)
[2018-07-15] MEDS ORDERED: PNEUMOCOCCAL VACCINE (23 VALENT) 0.5 ML VIAL IM ONE (16:43)
[2018-07-15] MEDS: HydrOXYzine PAMOATE 25 MG CAPSULE PO SCH (20:56)
[2018-07-15] MEDS: GABAPENTIN 300 MG CAPSULE PO SCH (20:57)
[2018-07-16] MEDS: KETOROLAC 15 MG/1 ML VIAL IV SCH ×4 (03:13→14:07)
[2018-07-16] MEDS: methylPREDNISolone SOD SUC 125 MG/2 ML VIAL IV SCH (04:34)
[2018-07-16] MEDS: SODIUM CHLORIDE 0.45% 1,000 ML IV SCH (08:46)
[2018-07-16] MEDS: HYDROmorphone PCA 30 MG/30 ML SYRINGE IV SCH (08:47)
[2018-07-16] MEDS: LISINOPRIL/HCTZ 20-12.5 MG TABLET PO SCH (08:56)
[2018-07-16] MEDS: BISACODYL 5 MG TABLET PO PRN (08:56)
[2018-07-16] MEDS: TAMSULOSIN 0.4 MG CAPSULE PO SCH (08:56)
[2018-07-16] MEDS: ALLOPURINOL 100 MG TABLET PO SCH (08:56)
[2018-07-16] MEDS: SERTRALINE 100 MG TABLET PO SCH (08:56)
[2018-07-16] MEDS: GABAPENTIN 300 MG CAPSULE PO SCH ×2 (08:56→21:20)
[2018-07-16] MEDS ORDERED: FLUTICASONE INH SCH (09:00)
[2018-07-16] MEDS ORDERED: UMECLIDINIUM INH SCH (09:00)
[2018-07-16] MEDS ORDERED: VILANTEROL INH SCH (09:00)
[2018-07-16] MEDS ORDERED: HYDROmorphone 2 MG/1 ML VIAL IV PRN (09:56)
[2018-07-16] MEDS: methylPREDNISolone SOD SUC 40 MG/1 ML VIAL IV SCH ×2 (11:14→21:20)
[2018-07-16] MEDS: HydrOXYzine PAMOATE 25 MG CAPSULE PO SCH (21:20)
[2018-07-17] MEDS: KETOROLAC 15 MG/1 ML VIAL IV SCH ×4 (00:13→15:12)
[2018-07-17] MEDS: HYDROmorphone 2 MG/1 ML VIAL IV PRN ×4 (04:22→19:40)
[2018-07-17 05:00] LABS: Basophils # 0.1 10*3/uL (0.0-0.2); Basophils % 0.7 % (0.0-0.8); Eosinophils % 0.2 % (0.00-10.9); Hematocrit 24.2 VOL% (42.0-52.0); Hemoglobin 6.8 GM/DL (14.0-18.0); Immature Granulocytes % 11.4 %; Immature Granulocytes Absolute 1.85 #; Mean Corpuscular HGB Conc 28.1 GM/DL (32-36); Mean Corpuscular Hemoglobin 27 PG (27-34); Mean Corpuscular Volume 94.5 FL (87-102); Mean Platelet Volume 12.5 FL (9.6-12.0); Monocytes # 1.9 10*3/uL (0.11-0.8); Monocytes % 11.8 % (1.7-12.7); NRBC # 6.49 10*3/uL; Neutrophils # 12.3 10*3/uL (1.4-7.4); Neutrophils % 75.9 % (38.7-73.9); Platelet Count 229 T/CUMM (130-400); Red Blood Count 2.56 MC/CUMM (3.8-5.5); Red Cell Distribution Width 19.7 % (9.3-17.3); White Blood Count 16.2 T/CUMM (4-12)
[2018-07-17 05:13] LABS: Albumin 3.6 G/DL (3.4-5.0); Bilirubin,Total 0.7 MG/DL (0.2-1.0); Osmolality,Calculated 270.9 MOS/KG (273-304); Potassium 5.6 MMOL/L (3.5-5.1); Total Protein 7.5 G/DL (6.4-8.3)
[2018-07-17 05:38] LABS: Anisocytosis 2+; Band Neutrophils 8 % (0-10); Eosinophils 1 % (0-10); Lymphocytes 1 % (20-55); Macrocytosis 1+; Metamyelocytes 3 %; Microcytosis 1+; Myelocytes 1 %; Nucleated Red Blood Cells 64 (0-5); Platelet Estimate Normal; Segmented Neutrophils 75 % (50-85); Total Cells Counted 100
[2018-07-17] MEDS: TAMSULOSIN 0.4 MG CAPSULE PO SCH (08:49)
[2018-07-17] MEDS: LISINOPRIL/HCTZ 20-12.5 MG TABLET PO SCH (08:50)
[2018-07-17] MEDS: GABAPENTIN 300 MG CAPSULE PO SCH ×2 (08:50→20:59)
[2018-07-17] MEDS: SERTRALINE 100 MG TABLET PO SCH (08:50)
[2018-07-17] MEDS: ALLOPURINOL 100 MG TABLET PO SCH (08:50)
[2018-07-17] MEDS: methylPREDNISolone SOD SUC 40 MG/1 ML VIAL IV SCH (09:00)
[2018-07-17] MEDS ORDERED: ALBUTEROL/IPRATROPIUM 3 ML NEB RESP TX PRN (12:06)
[2018-07-17] MEDS: predniSONE 20 MG TABLET PO SCH (12:45)
[2018-07-17] MEDS: SODIUM CHLORIDE 0.9% 1,000 ML IV SCH (12:47)
[2018-07-17] MEDS: BISACODYL 5 MG TABLET PO PRN (12:53)
[2018-07-17] MEDS ORDERED: FUROSEMIDE 40 MG/4 ML VIAL IV ONE (15:07)
[2018-07-17] MEDS ORDERED: SODIUM CHLORIDE 0.9% 1,000 ML IV PRN (15:09)
[2018-07-17] MEDS ORDERED: SODIUM POLYSTYRENE SULFATE 15 GM/60 ML BOTTLE PO STA (15:53)
[2018-07-17] MEDS: HydrOXYzine PAMOATE 25 MG CAPSULE PO SCH (20:59)
[2018-07-18] MEDS: HYDROmorphone 2 MG/1 ML VIAL IV PRN ×4 (02:20→20:25)
[2018-07-18] MEDS: SODIUM CHLORIDE 0.9% 1,000 ML IV SCH (04:47)
[2018-07-18 06:49] LABS: Basophils # 0.1 10*3/uL (0.0-0.2); Basophils % 0.4 % (0.0-0.8); Eosinophils % 0.1 % (0.00-10.9); Hematocrit 27.8 VOL% (42.0-52.0); Hemoglobin 8.1 GM/DL (14.0-18.0); Immature Granulocytes % 10.3 %; Immature Granulocytes Absolute 1.49 #; Lymphocytes # 0.2 10*3/uL (1.4-4.0); Lymphocytes % 1.5 % (21.2-54.2); Mean Corpuscular HGB Conc 29.1 GM/DL (32-36); Mean Corpuscular Hemoglobin 27 PG (27-34); Mean Corpuscular Volume 91.7 FL (87-102); Mean Platelet Volume 12.5 FL (9.6-12.0); Monocytes # 1.1 10*3/uL (0.11-0.8); Monocytes % 7.8 % (1.7-12.7); NRBC # 3.87 10*3/uL; Neutrophils # 11.5 10*3/uL (1.4-7.4); Neutrophils % 79.9 % (38.7-73.9); Platelet Count 232 T/CUMM (130-400); Red Blood Count 3.03 MC/CUMM (3.8-5.5); Red Cell Distribution Width 18.6 % (9.3-17.3); White Blood Count 14.4 T/CUMM (4-12)
[2018-07-18 07:00] LABS: Albumin 3.2 G/DL (3.4-5.0); Bilirubin,Total 0.9 MG/DL (0.2-1.0); Calcium 7.8 MG/DL (8.5-10.1); Osmolality,Calculated 280.8 MOS/KG (273-304); Potassium 5.8 MMOL/L (3.5-5.1); Total Protein 7.2 G/DL (6.4-8.3)
[2018-07-18 07:01] LABS: INR 0.9; PT Patient Result 10.1 SECS; Partial Thromboplastin Time 28.2 SECS (0-40)
[2018-07-18] MEDS: GABAPENTIN 300 MG CAPSULE PO SCH ×2 (08:00→20:26)
[2018-07-18] MEDS: LISINOPRIL/HCTZ 20-12.5 MG TABLET PO SCH (08:01)
[2018-07-18] MEDS: predniSONE 20 MG TABLET PO SCH (08:01)
[2018-07-18] MEDS: BISACODYL 5 MG TABLET PO PRN (08:01)
[2018-07-18] MEDS: TAMSULOSIN 0.4 MG CAPSULE PO SCH (08:01)
[2018-07-18] MEDS: ALLOPURINOL 100 MG TABLET PO SCH (08:02)
[2018-07-18] MEDS: SERTRALINE 100 MG TABLET PO SCH (08:02)
[2018-07-18 08:21] LABS: Band Neutrophils 1 % (0-10); Lymphocytes 3 % (20-55); Nucleated Red Blood Cells 25 (0-5); Polychromasia Few; Schistocytes Slight; Segmented Neutrophils 92 % (50-85); Total Cells Counted 100
[2018-07-18 08:22] LABS: Ovalocytes Few; Tear Drop Cells Few
[2018-07-18 08:23] LABS: Stomatocytes Few
[2018-07-18 08:24] LABS: Hypochromasia 1+
[2018-07-18] MEDS ORDERED: SODIUM PHOSPHATE ENEMA 133 ML BOTTLE RECTAL ONE ×2 (10:30→13:00)
[2018-07-18] MEDS ORDERED: SODIUM CHLORIDE 0.9% 1,000 ML IV SCH (11:00)
[2018-07-18] MEDS ORDERED: LACTULOSE 20 GM/30 ML UDCUP PO PRN (11:05)
[2018-07-18] MEDS ORDERED: SODIUM POLYSTYRENE SULFATE 15 GM/60 ML BOTTLE PO ONE (12:33)
[2018-07-18] MEDS: methylPREDNISolone SOD SUC 125 MG/2 ML VIAL IV SCH (14:20)
[2018-07-18] MEDS: DEXTROSE 5% NACL 0.45% 1,000 ML IV SCH (14:23)
[2018-07-18] MEDS: cefTRIAXone 1,000 MG in SYRINGE 1 EACH IV SCH (16:09)
[2018-07-18] MEDS: HydrOXYzine PAMOATE 25 MG CAPSULE PO SCH (20:26)
[2018-07-18] MEDS: FOLIC ACID 1 MG TABLET PO SCH (20:26)
[2018-07-19] MEDS: DEXTROSE 5% NACL 0.45% 1,000 ML IV SCH ×3 (01:10→20:04)
[2018-07-19] MEDS: HYDROmorphone 2 MG/1 ML VIAL IV PRN ×7 (01:15→23:18)
[2018-07-19] MEDS: methylPREDNISolone SOD SUC 125 MG/2 ML VIAL IV SCH (02:08)
[2018-07-19 05:30] LABS: Calcium 8.3 MG/DL (8.5-10.1); Osmolality,Calculated 283.7 MOS/KG (273-304); Potassium 5.4 MMOL/L (3.5-5.1)
[2018-07-19] MEDS: LISINOPRIL/HCTZ 20-12.5 MG TABLET PO SCH (08:28)
[2018-07-19] MEDS: SERTRALINE 100 MG TABLET PO SCH (08:28)
[2018-07-19] MEDS: GABAPENTIN 300 MG CAPSULE PO SCH ×2 (08:28→20:09)
[2018-07-19] MEDS: FOLIC ACID 1 MG TABLET PO SCH ×2 (08:28→20:09)
[2018-07-19] MEDS: ALLOPURINOL 100 MG TABLET PO SCH (08:28)
[2018-07-19] MEDS: TAMSULOSIN 0.4 MG CAPSULE PO SCH (08:28)
[2018-07-19] MEDS: cefTRIAXone 1,000 MG in SYRINGE 1 EACH IV SCH (16:09)
[2018-07-19] MEDS: HydrOXYzine PAMOATE 25 MG CAPSULE PO SCH (20:09)
[2018-07-20] MEDS: HYDROmorphone 2 MG/1 ML VIAL IV PRN ×5 (02:18→22:33)
[2018-07-20 05:03] LABS: Basophils # 0.1 10*3/uL (0.0-0.2); Basophils % 0.4 % (0.0-0.8); Eosinophils % 0.1 % (0.00-10.9); Hematocrit 25.6 VOL% (42.0-52.0); Hemoglobin 7.2 GM/DL (14.0-18.0); Immature Granulocytes Absolute 1.02 #; Lymphocytes # 0.3 10*3/uL (1.4-4.0); Lymphocytes % 1.8 % (21.2-54.2); Mean Corpuscular HGB Conc 28.1 GM/DL (32-36); Mean Corpuscular Hemoglobin 27 PG (27-34); Mean Corpuscular Volume 95.9 FL (87-102); Mean Platelet Volume 12.2 FL (9.6-12.0); Monocytes # 0.8 10*3/uL (0.11-0.8); Monocytes % 4.9 % (1.7-12.7); NRBC # 1.36 10*3/uL; Neutrophils # 14.7 10*3/uL (1.4-7.4); Neutrophils % 86.8 % (38.7-73.9); Platelet Count 268 T/CUMM (130-400); Red Blood Count 2.67 MC/CUMM (3.8-5.5); Red Cell Distribution Width 19.3 % (9.3-17.3); White Blood Count 16.9 T/CUMM (4-12)
[2018-07-20 06:09] LABS: Total Cells Counted 100
[2018-07-20 06:11] LABS: Lymphocytes 4 % (20-55); Metamyelocytes 1 %; Myelocytes 2 %; Nucleated Red Blood Cells 6 (0-5); Segmented Neutrophils 90 % (50-85)
[2018-07-20 06:12] LABS: Acanthocytes Few; Anisocytosis 1+; Hypochromasia 1+; Ovalocytes 1+; Tear Drop Cells Few
[2018-07-20 06:13] LABS: Platelet Estimate Adequate
[2018-07-20] MEDS ORDERED: SODIUM CHLORIDE 0.9% 1,000 ML IV PRN (10:04)
[2018-07-20] MEDS: LISINOPRIL/HCTZ 20-12.5 MG TABLET PO SCH (11:26)
[2018-07-20] MEDS: GABAPENTIN 300 MG CAPSULE PO SCH ×2 (11:26→20:35)
[2018-07-20] MEDS: FOLIC ACID 1 MG TABLET PO SCH ×2 (11:26→20:35)
[2018-07-20] MEDS: ALLOPURINOL 100 MG TABLET PO SCH (11:26)
[2018-07-20] MEDS: TAMSULOSIN 0.4 MG CAPSULE PO SCH (11:26)
[2018-07-20] MEDS: BISACODYL 5 MG TABLET PO PRN (11:26)
[2018-07-20] MEDS: SERTRALINE 100 MG TABLET PO SCH (11:26)
[2018-07-20] MEDS: DEXTROSE 5% NACL 0.45% 1,000 ML IV SCH (13:38)
[2018-07-20] MEDS: HydrOXYzine PAMOATE 25 MG CAPSULE PO SCH (20:35)
[2018-07-20] MEDS: cefTRIAXone 1,000 MG in SYRINGE 1 EACH IV SCH (20:35)
[2018-07-21] MEDS: HYDROmorphone 2 MG/1 ML VIAL IV PRN (06:32)
[2018-07-21] MEDS: DEXTROSE 5% NACL 0.45% 1,000 ML IV SCH (08:08)
[2018-07-21] MEDS: TAMSULOSIN 0.4 MG CAPSULE PO SCH (09:24)
[2018-07-21] MEDS: ALLOPURINOL 100 MG TABLET PO SCH (09:24)
[2018-07-21] MEDS: SERTRALINE 100 MG TABLET PO SCH (09:25)
[2018-07-21] MEDS: GABAPENTIN 300 MG CAPSULE PO SCH ×2 (09:25→20:35)
[2018-07-21] MEDS: LISINOPRIL/HCTZ 20-12.5 MG TABLET PO SCH (09:25)
[2018-07-21] MEDS: POLYETHYLENE GLYCOL POWDER 17 GM PACK PO SCH (09:25)
[2018-07-21] MEDS: FOLIC ACID 1 MG TABLET PO SCH ×2 (09:25→20:36)
[2018-07-21] MEDS: BISACODYL 5 MG TABLET PO SCH (11:52)
[2018-07-21] MEDS: BISACODYL 10 MG SUPP RECTAL SCH (11:52)
[2018-07-21] MEDS: HydrOXYzine PAMOATE 25 MG CAPSULE PO SCH (20:35)
[2018-07-21] MEDS: cefTRIAXone 1,000 MG in SYRINGE 1 EACH IV SCH (22:49)
[2018-07-22 05:33] LABS: Calcium 8.4 MG/DL (8.5-10.1); Osmolality,Calculated 302.2 MOS/KG (273-304); Potassium 4.3 MMOL/L (3.5-5.1)
[2018-07-22 06:02] LABS: Basophils # 0.1 10*3/uL (0.0-0.2); Basophils % 0.3 % (0.0-0.8); Hematocrit 26.9 VOL% (42.0-52.0); Hemoglobin 7.8 GM/DL (14.0-18.0); Immature Granulocytes % 5.7 %; Immature Granulocytes Absolute 1.03 #; Lymphocytes # 0.2 10*3/uL (1.4-4.0); Lymphocytes % 1.3 % (21.2-54.2); Mean Corpuscular Hemoglobin 27 PG (27-34); Mean Corpuscular Volume 94.1 FL (87-102); Mean Platelet Volume 12.4 FL (9.6-12.0); Monocytes # 0.8 10*3/uL (0.11-0.8); Monocytes % 4.6 % (1.7-12.7); NRBC # 1.03 10*3/uL; Neutrophils # 15.9 10*3/uL (1.4-7.4); Neutrophils % 88.1 % (38.7-73.9); Platelet Count 244 T/CUMM (130-400); Red Blood Count 2.86 MC/CUMM (3.8-5.5); Red Cell Distribution Width 18.2 % (9.3-17.3)
[2018-07-22 07:55] LABS: Band Neutrophils 1 % (0-10); Nucleated Red Blood Cells 2 (0-5); Segmented Neutrophils 98 % (50-85); Total Cells Counted 100
[2018-07-22] MEDS ORDERED: METOPROLOL TARTRATE 5 MG/5 ML VIAL IV ONE (07:55)
[2018-07-22 07:56] LABS: Hypochromasia 2+; Microcytosis 2+; Poikilocytosis 2+
[2018-07-22 07:57] LABS: Elliptocytes Few; Ovalocytes Few; Platelet Estimate Normal; Polychromasia Few; Schistocytes Few; Tear Drop Cells Slight
[2018-07-22] MEDS: DEXTROSE 5% NACL 0.45% 1,000 ML IV SCH ×2 (08:01→15:35)
[2018-07-22] MEDS ORDERED: DILTIAZEM 50 MG/10 ML VIAL IV ONE (08:17)
[2018-07-22] MEDS ORDERED: SODIUM CHLORIDE 0.9% 1,000 ML IV ONE ×2 (08:18→15:04)
[2018-07-22] MEDS: dilTIAZem Drip 125 MG/125 ML PREMIX IV SCH (08:35)
[2018-07-22] MEDS: PHENYLEPHRINE DRIP 40 MG/250 ML PREMIX IV PRN ×4 (09:10→23:11)
[2018-07-22] MEDS ORDERED: PHENYLEPHRINE DRIP 40 MG/250 ML PREMIX IV ONE (09:18)
[2018-07-22] MEDS: FOLIC ACID 1 MG TABLET PO SCH ×2 (10:10→21:17)
[2018-07-22] MEDS: SERTRALINE 100 MG TABLET PO SCH (10:10)
[2018-07-22] MEDS: POLYETHYLENE GLYCOL POWDER 17 GM PACK PO SCH (10:10)
[2018-07-22] MEDS: ALLOPURINOL 100 MG TABLET PO SCH (10:10)
[2018-07-22] MEDS: GABAPENTIN 300 MG CAPSULE PO SCH ×2 (10:10→21:17)
[2018-07-22] MEDS: TAMSULOSIN 0.4 MG CAPSULE PO SCH (10:11)
[2018-07-22] MEDS: BISACODYL 5 MG TABLET PO SCH (10:11)
[2018-07-22] MEDS ORDERED: HEPARIN/NACL 0.9% 2 UNITS/ML 500 ML IV ONE (11:22)
[2018-07-22] MEDS: BISACODYL 10 MG SUPP RECTAL SCH (12:27)
[2018-07-22 13:16] LABS: ABG Base Excess -5.1 MMOL/L (-2.5-2.5); ABG HCO3 20.2 MMOL/L (20-26); ABG Oxygen Saturation 99.7 % (95-100); ABG PCO2 63.7 MM HG (35-48); ABG TCO2 22.7 MMOL/L (23-27); Glucose Heart Surgery 209 MG/DL (74-106); Hematocrit Heart Surgery 29.9 PERCENT (42-52); Hemoglobin Heart Surgery 9.7 G/DL (14.0-18.0); Potassium Heart/CVR 4.4 MMOL/L (3.5-5.1)
[2018-07-22 13:22] LABS: ABG PH 7.186 (7.35-7.45)
[2018-07-22] MEDS ORDERED: ALBUMIN 5% 12.5 GM/250 ML VIAL IV ONE (13:28)
[2018-07-22] MEDS ORDERED: SODIUM BICARBONATE 50 MEQ/50 ML VIAL IV ONE (13:29)
[2018-07-22] MEDS: PROPOFOL 1,000 MG/100 ML BOTTLE IV SCH ×2 (14:50→15:36)
[2018-07-22] MEDS ORDERED: CALCIUM CHLORIDE 1,000 MG/10 ML VIAL IV ONE (15:03)
[2018-07-22] MEDS ORDERED: MIDAZOLAM 2 MG/2 ML VIAL ONE (15:03)
[2018-07-22] MEDS ORDERED: VECURONIUM 10 MG VIAL IV ONE (15:03)
[2018-07-22] MEDS ORDERED: MIDAZOLAM 10 MG/2 ML VIAL ONE (15:03)
[2018-07-22] MEDS ORDERED: SEVOFLURANE 1 UNIT/15 MINUTE INH ONE (15:03)
[2018-07-22] MEDS ORDERED: SUCCINYLCHOLINE 200 MG/10 ML VIAL ONE (15:04)
[2018-07-22] MEDS ORDERED: ETOMIDATE 40 MG/20 ML VIAL IV ONE (15:04)
[2018-07-22] MEDS ORDERED: ESMOLOL 100 MG/10 ML VIAL IV ONE (15:04)
[2018-07-22] MEDS ORDERED: PHENYLEPHRINE 1 MG/10 ML SYRINGE IV ONE (15:04)
[2018-07-22] MEDS ORDERED: SODIUM CHLORIDE 0.9% 500 ML IV ONE (15:04)
[2018-07-22] MEDS ORDERED: LACTATED RINGERS 2,000 ML IV ONE (15:04)
[2018-07-22] MEDS ORDERED: ROCURONIUM 100 MG/10 ML VIAL IV ONE (15:04)
[2018-07-22 15:27] LABS: Basophils % 0.3 % (0.0-0.8); Hematocrit 32.4 VOL% (42.0-52.0); Hemoglobin 9.7 GM/DL (14.0-18.0); Immature Granulocytes Absolute 0.82 #; Lymphocytes # 0.4 10*3/uL (1.4-4.0); Lymphocytes % 2.9 % (21.2-54.2); Mean Corpuscular HGB Conc 29.9 GM/DL (32-36); Mean Corpuscular Hemoglobin 27 PG (27-34); Mean Corpuscular Volume 90.3 FL (87-102); Monocytes # 0.5 10*3/uL (0.11-0.8); Monocytes % 3.5 % (1.7-12.7); NRBC # 0.83 10*3/uL; Neutrophils # 11.9 10*3/uL (1.4-7.4); Neutrophils % 87.3 % (38.7-73.9); Platelet Count 163 T/CUMM (130-400); Red Blood Count 3.59 MC/CUMM (3.8-5.5); Red Cell Distribution Width 17.8 % (9.3-17.3); White Blood Count 13.7 T/CUMM (4-12)
[2018-07-22] MEDS: LACTATED RINGERS 1,000 ML IV SCH ×2 (15:33→22:50)
[2018-07-22 15:40] LABS: ABG HCO3 26.9 MMOL/L (20-26); ABG Oxygen Saturation 97.3 % (95-100); ABG PO2 111.1 MM HG (80-95); ABG TCO2 29.1 MMOL/L (23-27)
[2018-07-22 15:45] LABS: ABG PCO2 70.4 MM HG (35-48)
[2018-07-22 15:48] LABS: Albumin 2.2 G/DL (3.4-5.0); Bilirubin,Total 0.6 MG/DL (0.2-1.0); Calcium 7.9 MG/DL (8.5-10.1); Osmolality,Calculated 312.7 MOS/KG (273-304); Potassium 3.7 MMOL/L (3.5-5.1); Total Protein 5.1 G/DL (6.4-8.3)
[2018-07-22] MEDS: PIPERACILLIN/TAZOBACTAM 3,375 MG in SODIUM CHLORIDE 0.9% 100 ML IV SCH (15:49)
[2018-07-22 17:52] LABS: ABG Base Excess -2.3 MMOL/L (-2.5-2.5); ABG HCO3 22.5 MMOL/L (20-26); ABG Oxygen Saturation 99.1 % (95-100); ABG PCO2 50.3 MM HG (35-48); ABG PH 7.297 (7.35-7.45); ABG TCO2 22.4 MMOL/L (23-27)
[2018-07-22 18:22] LABS: Band Neutrophils 1 % (0-10); Hypochromasia 1+; Lymphocytes 3 % (20-55); Nucleated Red Blood Cells 9 (0-5); Segmented Neutrophils 93 % (50-85); Total Cells Counted 100
[2018-07-22 18:23] LABS: Burr Cells Few; Ovalocytes Few; Platelet Estimate Adequate; Polychromasia Few; Tear Drop Cells Few
[2018-07-22] MEDS ORDERED: NOREPINEPHRINE 4 MG/4 ML VIAL IV ONE (18:40)
[2018-07-22] MEDS: NOREPINEPHRINE 8 MG in SODIUM CHLORIDE 0.9% 242 ML IV PRN (18:50)
[2018-07-22] MEDS: MIDAZOLAM 100 MG in SODIUM CHLORIDE 0.9% 80 ML IV PRN (19:15)
[2018-07-22] MEDS: fentaNYL INJ 1,250 MCG in SODIUM CHLORIDE 0.9% 225 ML IV PRN (19:15)
[2018-07-22] MEDS: HYDROmorphone 2 MG/1 ML VIAL IV PRN (19:46)
[2018-07-22] MEDS: HydrOXYzine PAMOATE 25 MG CAPSULE PO SCH (21:18)
[2018-07-23] MEDS: PIPERACILLIN/TAZOBACTAM 3,375 MG in SODIUM CHLORIDE 0.9% 100 ML IV SCH ×4 (00:22→23:48)
[2018-07-23] MEDS: PHENYLEPHRINE DRIP 40 MG/250 ML PREMIX IV PRN ×4 (01:01→07:16)
[2018-07-23 05:33] LABS: ABG Base Excess -1.8 MMOL/L (-2.5-2.5); ABG HCO3 22.9 MMOL/L (20-26); ABG Oxygen Saturation 98.9 % (95-100); ABG PCO2 38.9 MM HG (35-48); ABG PH 7.388 (7.35-7.45); ABG PO2 187.8 MM HG (80-95); ABG TCO2 24.1 MMOL/L (23-27)
[2018-07-23 05:54] LABS: Basophils # 0.1 10*3/uL (0.0-0.2); Basophils % 0.4 % (0.0-0.8); Hematocrit 32.4 VOL% (42.0-52.0); Immature Granulocytes % 2.8 %; Lymphocytes # 0.5 10*3/uL (1.4-4.0); Lymphocytes % 3.7 % (21.2-54.2); Mean Corpuscular HGB Conc 30.9 GM/DL (32-36); Mean Corpuscular Hemoglobin 27 PG (27-34); Mean Corpuscular Volume 87.8 FL (87-102); Mean Platelet Volume 13.5 FL (9.6-12.0); Monocytes # 0.5 10*3/uL (0.11-0.8); Monocytes % 3.4 % (1.7-12.7); NRBC # 1.27 10*3/uL; Neutrophils # 12.7 10*3/uL (1.4-7.4); Neutrophils % 89.7 % (38.7-73.9); Platelet Count 207 T/CUMM (130-400); Red Blood Count 3.69 MC/CUMM (3.8-5.5); White Blood Count 14.1 T/CUMM (4-12)
[2018-07-23 06:17] LABS: Albumin 2.1 G/DL (3.4-5.0); Bilirubin,Total 0.5 MG/DL (0.2-1.0); Calcium 8.2 MG/DL (8.5-10.1); Osmolality,Calculated 312.4 MOS/KG (273-304); Potassium 4.4 MMOL/L (3.5-5.1); Total Protein 5.5 G/DL (6.4-8.3)
[2018-07-23 06:24] LABS: INR 1.1
[2018-07-23] MEDS: LACTATED RINGERS 1,000 ML IV SCH ×3 (06:59→23:07)
[2018-07-23] MEDS: GABAPENTIN 300 MG CAPSULE PO SCH ×2 (08:22→21:33)
[2018-07-23] MEDS: POLYETHYLENE GLYCOL POWDER 17 GM PACK PO SCH (08:22)
[2018-07-23] MEDS: FOLIC ACID 1 MG TABLET PO SCH ×2 (08:22→21:33)
[2018-07-23] MEDS: TAMSULOSIN 0.4 MG CAPSULE PO SCH (08:22)
[2018-07-23] MEDS: SERTRALINE 100 MG TABLET PO SCH (08:23)
[2018-07-23] MEDS: ALLOPURINOL 100 MG TABLET PO SCH (08:23)
[2018-07-23] MEDS ORDERED: PANTOPRAZOLE 40 MG VIAL IV SCH (09:00)
[2018-07-23] MEDS: CHLORHEXIDINE 4% SOLN 118 ML BOTTLE TOP SCH (09:06)
[2018-07-23] MEDS: BISACODYL 10 MG SUPP RECTAL SCH (09:06)
[2018-07-23] MEDS: BISACODYL 5 MG TABLET PO SCH (09:06)
[2018-07-23] MEDS: SODIUM HYPOCHLORITE 0.25% IRRIG 473 ML BOTTLE TOP SCH (09:06)
[2018-07-23] MEDS: fentaNYL INJ 1,250 MCG in SODIUM CHLORIDE 0.9% 225 ML IV PRN ×2 (09:07→19:31)
[2018-07-23] MEDS: PHENYLEPHRINE INJ 160 MG in SODIUM CHLORIDE 0.9% 234 ML IV PRN ×2 (09:16→23:22)
[2018-07-23] MEDS: FAMOTIDINE 20 MG/2 ML VIAL IV SCH ×2 (10:49→21:41)
[2018-07-23] MEDS: dilTIAZem Drip 125 MG/125 ML PREMIX IV SCH (10:51)
[2018-07-23] MEDS: NOREPINEPHRINE 8 MG in SODIUM CHLORIDE 0.9% 242 ML IV PRN (14:03)
[2018-07-23] MEDS: PROPOFOL 1,000 MG/100 ML BOTTLE IV SCH (17:51)
[2018-07-23] MEDS: HydrOXYzine PAMOATE 25 MG CAPSULE PO SCH (21:33)
[2018-07-24] MEDS: NOREPINEPHRINE 16 MG in SODIUM CHLORIDE 0.9% 234 ML IV PRN ×3 (00:19→22:11)
[2018-07-24 04:52] LABS: ABG Base Excess -3.3 MMOL/L (-2.5-2.5); ABG HCO3 25.9 MMOL/L (20-26); ABG Oxygen Saturation 96.8 % (95-100); ABG PCO2 68.7 MM HG (35-48); ABG PO2 111.4 MM HG (80-95)
[2018-07-24 04:54] LABS: ABG PH 7.194 (7.35-7.45)
[2018-07-24 05:17] LABS: INR 1.3; PT Patient Result 13.8 SECS
[2018-07-24 05:20] LABS: Alanine Aminotransferase 23 U/L (16-61); Albumin 1.9 G/DL (3.4-5.0); Alkaline Phosphatase 121 U/L (45-117); Amylase 120 U/L (25-115); Aspartate Amino Transferase 55 U/L (0-37); Bilirubin,Total < 0.39 MG/DL (0.2-1.0); Blood Urea Nitrogen 93 MG/DL (7-18); Calcium 7.8 MG/DL (8.5-10.1); Glucose 160 MG/DL (74-106); Osmolality,Calculated 323.4 MOS/KG (273-304); Potassium 4.5 MMOL/L (3.5-5.1); Sodium 147 MMOL/L (136-145); Total Protein 4.5 G/DL (6.4-8.3)
[2018-07-24 05:33] LABS: Basophils # 0.1 10*3/uL (0.0-0.2); Basophils % 0.2 % (0.0-0.8); Hematocrit 31.1 VOL% (42.0-52.0); Hemoglobin 9.2 GM/DL (14.0-18.0); Immature Granulocytes % 2.9 %; Immature Granulocytes Absolute 0.59 #; Lymphocytes # 0.7 10*3/uL (1.4-4.0); Lymphocytes % 3.3 % (21.2-54.2); Mean Corpuscular HGB Conc 29.6 GM/DL (32-36); Mean Corpuscular Hemoglobin 27 PG (27-34); Mean Platelet Volume 13.1 FL (9.6-12.0); Monocytes # 0.8 10*3/uL (0.11-0.8); Monocytes % 4.1 % (1.7-12.7); NRBC # 1.79 10*3/uL; Neutrophils # 18.4 10*3/uL (1.4-7.4); Neutrophils % 89.5 % (38.7-73.9); Platelet Count 210 T/CUMM (130-400); Red Blood Count 3.38 MC/CUMM (3.8-5.5); Red Cell Distribution Width 19.9 % (9.3-17.3); White Blood Count 20.6 T/CUMM (4-12)
[2018-07-24] MEDS: fentaNYL INJ 1,250 MCG in SODIUM CHLORIDE 0.9% 225 ML IV PRN (05:40)
[2018-07-24 05:54] LABS: Band Neutrophils 2 % (0-10); Hypochromasia 1+; Lymphocytes 2 % (20-55); Nucleated Red Blood Cells 11 (0-5); Ovalocytes Slight; Platelet Estimate Adequate; Segmented Neutrophils 93 % (50-85); Total Cells Counted 100
[2018-07-24] MEDS: LACTATED RINGERS 1,000 ML IV SCH (07:22)
[2018-07-24] MEDS: PIPERACILLIN/TAZOBACTAM 3,375 MG in SODIUM CHLORIDE 0.9% 100 ML IV SCH ×2 (08:38→16:33)
[2018-07-24] MEDS: SODIUM HYPOCHLORITE 0.25% IRRIG 473 ML BOTTLE TOP SCH (09:06)
[2018-07-24] MEDS: BISACODYL 10 MG SUPP RECTAL SCH (09:06)
[2018-07-24] MEDS: dilTIAZem Drip 125 MG/125 ML PREMIX IV SCH (09:06)
[2018-07-24] MEDS: TAMSULOSIN 0.4 MG CAPSULE PO SCH (09:07)
[2018-07-24] MEDS: CHLORHEXIDINE 4% SOLN 118 ML BOTTLE TOP SCH (09:07)
[2018-07-24] MEDS: FOLIC ACID 1 MG TABLET PO SCH ×2 (09:07→21:06)
[2018-07-24] MEDS: BISACODYL 5 MG TABLET PO SCH (09:07)
[2018-07-24] MEDS: POLYETHYLENE GLYCOL POWDER 17 GM PACK PO SCH (09:07)
[2018-07-24] MEDS: SERTRALINE 100 MG TABLET PO SCH (09:08)
[2018-07-24] MEDS: GABAPENTIN 300 MG CAPSULE PO SCH ×2 (09:08→21:06)
[2018-07-24] MEDS: ALLOPURINOL 100 MG TABLET PO SCH (09:08)
[2018-07-24] MEDS: MIDAZOLAM 100 MG in SODIUM CHLORIDE 0.9% 80 ML IV PRN (09:09)
[2018-07-24] MEDS ORDERED: MIDAZOLAM 10 MG/2 ML VIAL ONE (10:52)
[2018-07-24] MEDS ORDERED: SODIUM BICARB INJ 150 MEQ in DEXTROSE 5% 850 ML IV SCH (11:30)
[2018-07-24 11:37] LABS: ABG HCO3 28.1 MMOL/L (20-26); ABG PCO2 55.3 MM HG (35-48); ABG PH 7.351 (7.35-7.45); ABG TCO2 28.4 MMOL/L (23-27); Allen Test Positive
[2018-07-24 11:38] LABS: Basophils # 0.1 10*3/uL (0.0-0.2); Basophils % 0.4 % (0.0-0.8); Hematocrit 29.8 VOL% (42.0-52.0); Hemoglobin 8.7 GM/DL (14.0-18.0); Immature Granulocytes % 3.6 %; Immature Granulocytes Absolute 0.78 #; Lymphocytes # 1.7 10*3/uL (1.4-4.0); Mean Corpuscular HGB Conc 29.2 GM/DL (32-36); Mean Corpuscular Hemoglobin 27 PG (27-34); Mean Corpuscular Volume 92.3 FL (87-102); Mean Platelet Volume 12.7 FL (9.6-12.0); Monocytes # 0.7 10*3/uL (0.11-0.8); Monocytes % 3.2 % (1.7-12.7); NRBC # 1.84 10*3/uL; Neutrophils # 18.6 10*3/uL (1.4-7.4); Neutrophils % 84.8 % (38.7-73.9); Platelet Count 200 T/CUMM (130-400); Red Blood Count 3.23 MC/CUMM (3.8-5.5); Red Cell Distribution Width 19.5 % (9.3-17.3); White Blood Count 21.9 T/CUMM (4-12)
[2018-07-24] MEDS ORDERED: LACTATED RINGERS 1,000 ML IV ONE (11:42)
[2018-07-24] MEDS ORDERED: MIDAZOLAM 2 MG/2 ML VIAL IV ONE ×2 (11:50→11:55)
[2018-07-24 12:02] LABS: Calcium 12.1 MG/DL (8.5-10.1); Osmolality,Calculated 334.6 MOS/KG (273-304); Potassium 5.9 MMOL/L (3.5-5.1)
[2018-07-24 12:09] LABS: Band Neutrophils 4 % (0-10); Hypochromasia 1+; Lymphocytes 14 % (20-55); Nucleated Red Blood Cells 16 (0-5); Ovalocytes Slight; Platelet Estimate Adequate; Segmented Neutrophils 77 % (50-85); Total Cells Counted 100
[2018-07-24] MEDS: PHENYLEPHRINE INJ 160 MG in SODIUM CHLORIDE 0.9% 234 ML IV PRN ×2 (13:08→22:05)
[2018-07-24] MEDS: FAMOTIDINE 20 MG/2 ML VIAL IV SCH ×2 (14:09→22:14)
[2018-07-24] MEDS: SODIUM CHLORIDE 0.45% 1,000 ML IV SCH ×2 (14:09→22:21)
[2018-07-24 16:02] LABS: Basophils % 0.2 % (0.0-0.8); Hematocrit 33.3 VOL% (42.0-52.0); Hemoglobin 9.9 GM/DL (14.0-18.0); Immature Granulocytes % 2.5 %; Immature Granulocytes Absolute 0.33 #; Lymphocytes # 0.4 10*3/uL (1.4-4.0); Lymphocytes % 2.8 % (21.2-54.2); Mean Corpuscular HGB Conc 29.7 GM/DL (32-36); Mean Corpuscular Hemoglobin 27 PG (27-34); Mean Corpuscular Volume 91.5 FL (87-102); Mean Platelet Volume 11.9 FL (9.6-12.0); Monocytes # 0.5 10*3/uL (0.11-0.8); Monocytes % 4.1 % (1.7-12.7); NRBC # 1.84 10*3/uL; Neutrophils # 11.8 10*3/uL (1.4-7.4); Neutrophils % 90.4 % (38.7-73.9); Platelet Count 198 T/CUMM (130-400); Red Blood Count 3.64 MC/CUMM (3.8-5.5); Red Cell Distribution Width 19.9 % (9.3-17.3); White Blood Count 13.1 T/CUMM (4-12)
[2018-07-24] MEDS: PROPOFOL 1,000 MG/100 ML BOTTLE IV SCH (16:11)
[2018-07-24 16:20] LABS: Calcium 8.2 MG/DL (8.5-10.1); Osmolality,Calculated 323.4 MOS/KG (273-304); Potassium 5.9 MMOL/L (3.5-5.1)
[2018-07-24] MEDS ORDERED: SODIUM CHLORIDE 0.9% 1,000 ML IV ONE ×3 (16:20→18:45)
[2018-07-24 16:27] LABS: Giant Platelets Few; Lymphocytes 4 % (20-55); Nucleated Red Blood Cells 17 (0-5); Platelet Estimate Adequate; Segmented Neutrophils 92 % (50-85); Total Cells Counted 100
[2018-07-24 16:28] LABS: Hypochromasia 1+; Ovalocytes Slight
[2018-07-24] MEDS ORDERED: ALBUMIN 5% 25 GM in PREMIX 1 EACH IV ONE (18:45)
[2018-07-24] MEDS: HydrOXYzine PAMOATE 25 MG CAPSULE PO SCH (21:06)
[2018-07-24] MEDS ORDERED: VECURONIUM 10 MG VIAL IV ONE (21:17)
[2018-07-24 21:37] LABS: ABG Base Excess -15.2 MMOL/L (-2.5-2.5); ABG HCO3 12.5 MMOL/L (20-26); ABG Oxygen Saturation 98.8 % (95-100); ABG PCO2 36.1 MM HG (35-48); ABG PO2 239.2 MM HG (80-95); ABG TCO2 13.6 MMOL/L (23-27)
[2018-07-24 21:39] LABS: ABG PH 7.157 (7.35-7.45)
[2018-07-24 21:51] LABS: Basophils % 0.3 % (0.0-0.8); Hematocrit 34.3 VOL% (42.0-52.0); Hemoglobin 9.7 GM/DL (14.0-18.0); Immature Granulocytes % 2.6 %; Immature Granulocytes Absolute 0.37 #; Lymphocytes # 0.4 10*3/uL (1.4-4.0); Lymphocytes % 2.6 % (21.2-54.2); Mean Corpuscular HGB Conc 28.3 GM/DL (32-36); Mean Corpuscular Hemoglobin 27 PG (27-34); Mean Corpuscular Volume 96.1 FL (87-102); Monocytes # 0.6 10*3/uL (0.11-0.8); Monocytes % 3.9 % (1.7-12.7); NRBC # 2.06 10*3/uL; Neutrophils # 13.1 10*3/uL (1.4-7.4); Neutrophils % 90.6 % (38.7-73.9); Platelet Count 187 T/CUMM (130-400); Red Blood Count 3.57 MC/CUMM (3.8-5.5); Red Cell Distribution Width 19.9 % (9.3-17.3); White Blood Count 14.5 T/CUMM (4-12)
[2018-07-24] MEDS ORDERED: SODIUM BICARBONATE 50 MEQ/50 ML VIAL IV ONE (21:59)
[2018-07-24 22:02] LABS: Calcium 8.1 MG/DL (8.5-10.1); Osmolality,Calculated 319.4 MOS/KG (273-304)
[2018-07-24 22:28] LABS: Band Neutrophils 3 % (0-10); Lymphocytes 5 % (20-55); Metamyelocytes 1 %; Nucleated Red Blood Cells 10 (0-5); Total Cells Counted 100
[2018-07-24 22:30] LABS: Giant Platelets Few
[2018-07-24 22:31] LABS: Burr Cells 1+; Polychromasia Few
[2018-07-24 22:34] LABS: Platelet Estimate Adequate; Segmented Neutrophils 87 % (50-85)
[2018-07-24 23:06] VITALS: BP 99/53
[2018-07-24] MEDS: HYDROmorphone 2 MG/1 ML VIAL IV PRN (23:30)
[2018-07-25] MEDS: PIPERACILLIN/TAZOBACTAM 3,375 MG in SODIUM CHLORIDE 0.9% 100 ML IV SCH (01:44)
== END 2018-07-24 23:43 | disposition expired | DRG 799 ==
LOC: SUPCPDRO → N.RAD 06:20 → N.SDSINP 06:21 → N.4E 12:29 → N.CC 07-22 08:17
PROVIDERS: ADMIT Specialist; ATTEND Specialist
PROC: IREMBBI (2018-07-15 11:00)